=== PATIENT | female | born 1995 | race Caucasian/White ===

== ENCOUNTER 2021-05-19 02:17 | Outpatient (CLI) | payer MEDICAID, SELFPAY ==
[2021-05-19 15:01] LABS: Abs Immature Grans 0.04 10^3/uL (0.0-0.06); Absolute Basophil Count 0.03 10^3/uL (0.0-0.2); Absolute Eosinophil Count 0.26 10^3/uL (0.0-0.7); Absolute Lymphocyte Count 1.63 10^3/uL (1.2-3.4); Absolute Monocyte Count 1.06 10^3/uL (0.1-0.8); Absolute Neutrophil Count 6.67 10^3/uL (1.2-6.7); Basophils % 0.3; Eosinophils % 2.7; HCT 27.4 % (36.0-46.0); HGB 8.8 g/dL (11.2-15.7); Immature Grans % 0.4; Lymphocytes % 16.8; MCH 25.2 pg (27.0-33.0); MCHC 32.1 % (32.0-36.0); MCV 78.5 fL (80-95); MPV 8.5 fL (8.0-11.0); Monocytes % 10.9; Neutrophils % 68.9; Nucleated RBC 0 %; Platelet Count 547 10^3/uL (130-400); RBC 3.49 10^6/uL (3.93-5.22); RDW 12.6 % (11.7-14.6); RDW-SD 35.9 fL; WBC 9.69 10^3/uL (4.4-10.8)
[2021-05-19 15:13] LABS: Diff Comment Agrees w/ Instrument; Microcytosis 1+
[2021-05-19 15:46] LABS: TSH (W/Ref FT4) 1.98 uIU/mL (0.36-3.74)
[2021-05-20 09:48] LABS: Hepatitis B Surface Ag Negative (Negative)
[2021-05-20 10:15] LABS: Varicella IgG Antibody Positive (See Note)
[2021-05-20 10:17] LABS: Rubella IgG Ab (UVM) Positive (See Note)
[2021-05-20 10:18] LABS: Hepatitis C Ab w Rflx HCV PCR Negative (Negative)
[2021-05-20 10:26] LABS: HIV-1/2 Ag & Ab Screen Negative (Negative)
[2021-05-20 10:27] LABS: HSV Type 1 Ab, IgG Negative (Negative); HSV Type 2 Ab, IgG Positive (Negative)
[2021-05-21 14:17] LABS: Syphilis IgG w/Reflex Nonreactive (Nonreactive)
== END 2021-05-19 02:18 | disposition home or self-care (01) ==
PROVIDERS: Visit Provider Advanced Practice Midwife
DX: Z34.91 Encounter for supervision of normal pregnancy, unspecified, first trimester (principal)
CPT/HCPCS: 36415; 80307; 86787; 86803; 86850; 86900; 86901; 87340; 87389; 84443; 85025; 86695; 86696; 86762; 86780; 86870; 87086

== ENCOUNTER 2021-05-20 11:43 | Outpatient (REF) | payer MEDICAID, SELFPAY ==
[2021-05-20 13:21] LABS: *AMPHETAMINES SCREEN URINE Negative (Negative); *BARBITURATES SCREEN URINE Negative (Negative); *BENZODIAZEPINES SCREEN URINE Negative (Negative); Cannabinoids THC Negative (Negative); Cocaine Screen,Urine Negative (Negative); METHADONE URINE SCREEN Negative (Negative); OPIATES URINE SCREEN Negative (Negative)
[2021-05-20 13:23] LABS: Tricyclic Antidepressants Negative (Negative)
[2021-05-25 09:37] LABS: Buprenorphine Negative ng/mL (Cutoff: 5.0); Norbuprenorphine Negative ng/mL (Cutoff: 2.5)
== END 2021-05-20 11:44 | disposition home or self-care (01) ==
LOC: LBN 11:43
PROVIDERS: Visit Provider Advanced Practice Midwife
DX: Z34.91 Encounter for supervision of normal pregnancy, unspecified, first trimester (principal)
CPT/HCPCS: 80307; 87086

== ENCOUNTER 2021-06-09 13:11 | Outpatient (CLI) | payer MEDICAID, SELFPAY ==
[2021-06-09 13:17] VITALS: BP 117/68; PULSE 101; TEMP 36.8
[2021-06-09 13:26] VITALS: BP 117/68; PULSE 101; TEMP 36.8
--- NOTE | 2021-06-09 13:50 | PDOC.NST_ITS ---
Date of service: 06/09/21 Time of Service: 13:35 NST Evaluation Reason for NST Reasons for Nonstress Test: DECREASED MOVEMENT Gestational Age Gestational Age in Weeks and Days: 34 Weeks and 0Days Test and Monitor Explained Test/Monitor Explained: Test Explained, Monitor Explained and Patient Verbalized Understanding Vital Signs Blood Pressure: 117/68 Pulse: 101 Temperature: 98.2 F NST Information Date on Monitor: 06/09/21 Time on Monitor: 13:13 NST Interventions: PO Hydration Contraction Frequency: 0 NST Evaluation Patient States Movement: Present and Decreased FHR Baseline: 130 Variability: Moderate 6-25 bpm Accelerations: 15x15 Decelerations: None NST Results: Reactive Note NST Note Note: NST is reactive and reassuring. CAT I. Patient is aware of movement at this time and now reports she is feeling movement but not as large of movements. We discussed that as baby grows the movements may not be more than and arm or leg extension. We discussed that NST is best to evaluate changes in movement and she should call as she did today for any further concerns. Patient is r eassured and discharged to home ambulatory in satisfactory condition. VANNA NST Reviewed and Verified by: Micaela Briones
[2021-06-09 13:53] VITALS: BP 117/68; PULSE 101; TEMP 36.8
--- NOTE | 2021-06-15 13:25 | PDOC.ANES ---
Date of service: 06/15/21 Time of Service: 13:27 Anesthesia Note Report Anesthesia Note: Asked to see patient who has a history of remote drug use. She denies any IV drug use. She may be interested in a labor epidural but is concerned that it contains fentanyl. I discussed this with pharmacy who said we have the ability to make a solution without fentanyl. The plan would be to make this solution a week before her delivery date of 07/21/21 as this solution will be good for 14 days. Assessed airway, IV access and lumbar area with no difficulty noted. Explained procedure to patient who will think about it. Also discussed nitrous option which she is not interested in. Ashish seems appropriate to proceed with her planned delivery here.
== END 2021-06-09 13:50 | disposition home or self-care (01) ==
LOC: BCD 13:19 → OBS 13:23
PROVIDERS: Visit Provider Advanced Practice Midwife
DX: O36.8130 Decreased fetal movements, third trimester, not applicable or unspecified (principal); Z3A.34 34 weeks gestation of pregnancy
CPT/HCPCS: 59025

== ENCOUNTER 2021-07-01 13:22 | Outpatient (CLI) | payer MEDICAID, SELFPAY ==
[2021-07-01 13:38] VITALS: BP 120/69; PULSE 87; RESP 16
[2021-07-01] MEDS: IRON SUCROSE COMPLEX 200 MG in Normal Saline 100 ML 400 MG IVPB (14:08)
[2021-07-01] MEDS: Lactated Ringers 1,000 ML 1000 ML IV (14:10)
[2021-07-01 14:24] VITALS: BP 120/69; PULSE 87
--- NOTE | 2021-07-01 14:39 | NUR.NOTE ---
This RN assumed care of patient at 1330. Patient presents to the with welt wheeler JORGE L. Patient is ordered iron infusion for iron level of 7 per ANH COATS. Order of NST and hydration fluids given. IV in right hand by Emmanuel KRUGER. 1 attempt. Patient given PO fluids as well. Patient education - reviewed having iron with vit c for absorption. pt comfortable and aware of plan of care. plan is to have her return weekly for iron infusion w nst. BP wnl. larissa, rn Nursing Note:
--- NOTE | 2021-07-01 14:43 | W.OBNST ---
Date of service: 07/01/21 Time of Service: 14:43 NST Evaluation Reason for NST Reasons for Nonstress Test: OTHER, SEE COMMENT Reason for NST Other: Low Iron Gestational Age Gestational Age in Weeks and Days: 34 Weeks and 0Days Test and Monitor Explained Test/Monitor Explained: Test Explained, Monitor Explained and Patient Verbalized Understanding Vital Signs Blood Pressure: 120/69 Pulse: 87 NST Information Time on Monitor: 13:36 Date off Monitor: 07/01/21 Time off Monitor: 14:10 NST Interventions: PO Hydration, IV Fluids and Other NST Evaluation Patient States Movement: Present FHR Baseline: 130 Variability: Moderate 6-25 bpm Accelerations: 15x15 Decelerations: None NST Results: Reactive Note NST Note Note: Reactive NST done due to elevated BP in office today and urine dip that showed 1.030 Sp [place] and 100 of protein. Patient is also anemic with bedside hgb today in office of 7.5. She is taking oral supplement but not increasing her level. She agrees to IV iron infusion and IV hydration while at today for NST. She will also return to every week at 4:30 on Fridays for NST and iron infusion until over 11.0. Ashish denies OG, visual disturbance or epigastric pain. She is having bilateral lower leg edema 1+ to mid calf. We discussed importance of hgb and iron infusion as well as how to take her PO iron at home today. She verbalizes understanding. Will be discharged to home once IV hydration is completed and repeat urine dip is done. As her visit for hydration continued, patient requested repeat UDS as she is certain she has not been exposed to or used THC containing products. She is frustrated as she takes her sobriety very seriously. I ordered a repeat UDS for today. If that is negative we also will consider repeating UDS in a week. VANNA NST Reviewed and Verified by: Micaela Briones
[2021-07-01 14:47] VITALS: BP 120/69; PULSE 87
[2021-07-01 14:54] LABS: *AMPHETAMINES SCREEN URINE Negative (Negative); *BARBITURATES SCREEN URINE Negative (Negative); *BENZODIAZEPINES SCREEN URINE Negative (Negative); Cannabinoids THC Positive (Negative); Cocaine Screen,Urine Negative (Negative); METHADONE URINE SCREEN Negative (Negative); OPIATES URINE SCREEN Negative (Negative)
[2021-07-01 14:55] LABS: Tricyclic Antidepressants Negative (Negative)
[2021-07-01 16:38] LABS: *AMPHETAMINES SCREEN URINE Negative (Negative); *BARBITURATES SCREEN URINE Negative (Negative); *BENZODIAZEPINES SCREEN URINE Negative (Negative); Cannabinoids THC Negative (Negative); Cocaine Screen,Urine Negative (Negative); METHADONE URINE SCREEN Negative (Negative); OPIATES URINE SCREEN Negative (Negative); Tricyclic Antidepressants Negative (Negative)
[2021-07-06 11:29] LABS: Buprenorphine Negative ng/mL (Cutoff: 5.0)
== END 2021-07-01 16:52 | disposition home or self-care (01) ==
LOC: BCD 13:24 → NUR 13:39
PROVIDERS: Advanced Practice Midwife; Visit Provider Advanced Practice Midwife
DX: O99.013 Anemia complicating pregnancy, third trimester (principal); Z3A.34 34 weeks gestation of pregnancy; R80.9 Proteinuria, unspecified
CPT/HCPCS: 59025; 80307; 96360; 96361; 96365; 87081; J1756

== ENCOUNTER 2021-07-07 20:52 | Outpatient (REF) | payer MEDICAID, SELFPAY ==
[2021-07-07 16:06] LABS: *AMPHETAMINES SCREEN URINE Negative (Negative); *BARBITURATES SCREEN URINE Negative (Negative); *BENZODIAZEPINES SCREEN URINE Negative (Negative); Cannabinoids THC Negative (Negative); Cocaine Screen,Urine Negative (Negative); METHADONE URINE SCREEN Negative (Negative); OPIATES URINE SCREEN Negative (Negative)
[2021-07-07 16:53] LABS: Tricyclic Antidepressants Negative (Negative)
[2021-07-14 10:00] LABS: Buprenorphine Negative ng/mL (Cutoff: 5.0); Norbuprenorphine Negative ng/mL (Cutoff: 2.5)
== END 2021-07-07 20:53 | disposition home or self-care (01) ==
LOC: LBN 20:52
PROVIDERS: Visit Provider Advanced Practice Midwife
DX: Z34.93 Encounter for supervision of normal pregnancy, unspecified, third trimester (principal); Z3A.37 37 weeks gestation of pregnancy
CPT/HCPCS: 80307

== ENCOUNTER 2021-07-08 08:54 | Outpatient (CLI) | payer MEDICAID, SELFPAY ==
[2021-07-08 14:59] VITALS: BP 136/84; PULSE 86
[2021-07-08 15:00] VITALS: BP 136/84; PULSE 86; TEMP 208.8; TEMP 98.2
[2021-07-08] MEDS: Normal Saline 500 ML 200 ML IV (15:27)
[2021-07-08 15:31] VITALS: BP 136/84; PULSE 86; TEMP 208.8; TEMP 98.2
[2021-07-08] MEDS: IRON SUCROSE COMPLEX 200 MG in Normal Saline 100 ML 400 MG IVPB (15:36)
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
[2021-07-08 15:54] VITALS: BP 136/84; PULSE 86; TEMP 208.8; TEMP 98.2
[2021-07-08 16:18] LABS: HGB 8.2 g/dL (11.2-15.7); MCH 23.6 pg (27.0-33.0); MCHC 30.4 % (32.0-36.0); MCV 78 fL (80-95); MPV 9.2 fL (8.0-11.0); Platelet Count 325 10^3/uL (130-400); RBC 3.47 10^6/uL (3.93-5.22); RDW 17.2 % (11.7-14.6); RDW-SD 39.8 fL; WBC 9.34 10^3/uL (4.4-10.8)
[2021-07-08 16:32] LABS: ALT 17 U/L (14-59); AST 21 U/L (15-37); Albumin 2.4 g/dL (3.4-5.0); Alkaline Phosphatase 152 U/L (46-116); Anion Gap 8.9 mmol/L (3-11); BUN 8 mg/dL (7-18); Bilirubin, Total 0.2 mg/dL (0.2-1.0); CO2 24.1 mmol/L (21.0-32.0); CREATININE 0.7 mg/dL (0.55-1.02); Calcium 8.2 mg/dL (8.5-10.1); Chloride 105 mmol/L (98-107); Glucose 96 mg/dL (74-106); LDH 248 U/L (81-234); Potassium 3.6 mmol/L (3.5-5.1); Sodium 138 mmol/L (136-145); Uric Acid 5.9 mg/dL (2.6-6.0)
[2021-07-08 16:42] LABS: PROTEIN < 6.0 mg/dL
[2021-07-08 16:44] LABS: COMMENT (LAB VIEW ONLY) 8.86 mg/dL
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
== END 2021-07-08 17:15 | disposition home or self-care (01) ==
LOC: BCD 08:55 → OBS 14:46
PROVIDERS: Visit Provider Advanced Practice Midwife
DX: O16.3 Unspecified maternal hypertension, third trimester (principal); O99.013 Anemia complicating pregnancy, third trimester
CPT/HCPCS: 80053; 85027; 96360; 96361; 96365; 82565; 83615; 84156; 84550; G0378; J1756

== ENCOUNTER 2021-07-11 02:38 | Outpatient (CLI) | payer MEDICAID, SELFPAY | END 2021-07-11 02:39 | disposition home or self-care (01) | LOC: LBO 02:38 | PROVIDERS: Visit Provider Advanced Practice Midwife ==

== ENCOUNTER 2021-07-14 13:32 | Outpatient (CLI) | payer MEDICAID, SELFPAY ==
[2021-07-14] VITALS (13 sets, daily range): BP systolic 128–148; BP diastolic 82–99; PULSE 80–95; TEMP 36.7
[2021-07-14 14:14] LABS: HCT 27.2 % (36.0-46.0); HGB 8.5 g/dL (11.2-15.7); MCH 24.6 pg (27.0-33.0); MCHC 31.3 % (32.0-36.0); MCV 79 fL (80-95); MPV 9.4 fL (8.0-11.0); Platelet Count 361 10^3/uL (130-400); RBC 3.46 10^6/uL (3.93-5.22); RDW 21.8 % (11.7-14.6); RDW-SD 42.5 fL
[2021-07-14 14:29] LABS: ALT 16 U/L (14-59); AST 21 U/L (15-37); Albumin 2.2 g/dL (3.4-5.0); Alkaline Phosphatase 158 U/L (46-116); Anion Gap 11.1 mmol/L (3-11); BUN 6 mg/dL (7-18); Bilirubin, Total 0.2 mg/dL (0.2-1.0); CO2 19.9 mmol/L (21.0-32.0); CREATININE 0.7 mg/dL (0.55-1.02); Calcium 7.9 mg/dL (8.5-10.1); Chloride 105 mmol/L (98-107); Glucose 85 mg/dL (74-106); Potassium 3.9 mmol/L (3.5-5.1); Sodium 136 mmol/L (136-145); Total Protein 6.6 g/dL (6.4-8.2); Uric Acid 6.2 mg/dL (2.6-6.0)
[2021-07-14] MEDS: IRON SUCROSE COMPLEX 200 MG in Normal Saline 100 ML 400 MG IVPB (15:10)
[2021-07-14] MEDS: Normal Saline Flush 10 ML SYR (15:12)
[2021-07-14 15:24] LABS: COMMENT (LAB VIEW ONLY) 100.88 mg/dL; PROTEIN 124.4 mg/dL; Prot/Crea Ur Ratio 1.23
--- NOTE | 2021-07-14 16:38 | W.OBNST ---
Date of service: 07/14/21 Time of Service: 16:38 NST Evaluation Reason for NST Reasons for Nonstress Test: OTHER, SEE COMMENT Reason for NST Other: Evaluation for PreEclampsia, elevated BP in office Gestational Age Gestational Age in Weeks and Days: 38 Weeks and 2Days Test and Monitor Explained Test/Monitor Explained: Test Explained, Monitor Explained and Patient Verbalized Understanding Vital Signs Blood Pressure: 138/95 Pulse: 93 Temperature: 98.1 F NST Information Time on Monitor: 13:25 Date off Monitor: 07/14/21 Time off Monitor: 14:06 NST Interventions: PO Hydration, IV Fluids, Meal Given and Notify Provider Contraction Frequency: None NST Evaluation Patient States Movement: Present FHR Baseline: 135 Variability: Moderate 6-25 bpm Accelerations: 15x15 Decelerations: None NST Results: Reactive Note NST Note Note: Iron infusion #3 completed Cvx ft/50% posterior, vtx -4, intact membranes HTN labs done and are nml except for urine prot/creat @ 1.23 Pt to begin 24 hr urine collection in the morning, Return to 07/16 for BP, NST and await urine protein result. Possible IOL on 07/16 if >300 gms, otherwise IOL planned for 07/19 (@ 39 wks) NST Reviewed and Verified by: Christy Gagnon
== END 2021-07-14 16:20 | disposition home or self-care (01) ==
LOC: BCD 13:32 → OBS 13:33
PROVIDERS: Advanced Practice Midwife; Visit Provider Advanced Practice Midwife
DX: O16.3 Unspecified maternal hypertension, third trimester (principal); O99.013 Anemia complicating pregnancy, third trimester; Z3A.38 38 weeks gestation of pregnancy
CPT/HCPCS: 59025; 80053; 85027; 96365; 82565; 84156; 84550; G0378; J1756

== ENCOUNTER 2021-07-14 18:30 | Outpatient (CLI) | payer MEDICAID, SELFPAY | END 2021-07-14 18:31 | disposition home or self-care (01) | LOC: BCD 18:30 | PROVIDERS: Visit Provider Advanced Practice Midwife | DX: O16.3 Unspecified maternal hypertension, third trimester (principal); Z3A.38 38 weeks gestation of pregnancy | CPT/HCPCS: 59025 ==

== ENCOUNTER 2021-07-15 02:49 | Inpatient (IN) | payer MEDICAID, SELFPAY ==
[2021-07-15] VITALS (8 sets, daily range): BP systolic 132–151; BP diastolic 91–99; PULSE 18–83; RESP 16–18; TEMP 36.4–36.9
--- NOTE | 2021-07-15 | DI.US_ITS ---
Exam(s) US OB AMY WEIGHT EXAM: US OB AMY WEIGHT CLINICAL HISTORY: pre-eclampsia. TECHNIQUE: Transabdominal obstetrical ultrasound was performed. COMPARISON: No exams were available for comparison FINDINGS: This is the 1st study of this gestation in our department. There is a single viable intrauterine gestation with cardiac activity identified-132 bpm The fetus is presently in cephalic position . Amniotic fluid: There is a normal amount of amniotic fluid with an AMY of 11.9cm. Placental location: The placenta is anterior grade 2,with no evidence of placenta previa. Dating parameters place this at approximately 37 weeks and 6 days gestational age, implying GIULIANA of July 30, 2021. BPD measures 38 weeks and 0 days HC measures 38 weeks and 0 days AC measures 37 weeks and 5 days FL measures 37 weeks and 4 days Estimated weight is 3304 gm-7 pounds 5 ounces Fetus is at the 48th percentile on the Hadlock scale. IMPRESSION:: Viable 3rd trimester gestation, as described above. Normal amount of amniotic fluid. Anterior placenta with no evidence of placenta previa. DATA REPOSITORY:
--- NOTE | 2021-07-15 03:27 | NUR.NOTE ---
Nursing Note:had 1 dose of moderna vaccine
[2021-07-15 04:00] LABS: COMMENT (LAB VIEW ONLY) 90.84 mg/dL; PROTEIN 99.9 mg/dL; Prot/Crea Ur Ratio 1.09
[2021-07-15 04:04] LABS: HCT 28.6 % (36.0-46.0); HGB 8.9 g/dL (11.2-15.7); MCH 24.1 pg (27.0-33.0); MCHC 31.1 % (32.0-36.0); MCV 78 fL (80-95); MPV 9.6 fL (8.0-11.0); Platelet Count 417 10^3/uL (130-400); RBC 3.69 10^6/uL (3.93-5.22); RDW-SD 43.1 fL; WBC 6.95 10^3/uL (4.4-10.8)
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
[2021-07-15 04:31] LABS: Bilirubin Negative (Negative); Blood Negative (Negative); Clarity Cloudy (Clear); Glucose Negative (Negative); Ketones Negative (Negative); Leukocyte Esterase Small (Negative); Nitrite Negative (Negative); Specific Gravity 1.025 (1.005-1.025); Urobilinogen 0.2 EU/dL (Up TO 0.2)
[2021-07-15 04:53] LABS: ALT 26 U/L (14-59); AST 20 U/L (15-37); Albumin 2.1 g/dL (3.4-5.0); Alkaline Phosphatase 161 U/L (46-116); BUN 5 mg/dL (7-18); CREATININE 0.6 mg/dL (0.55-1.02); Calcium 7.9 mg/dL (8.5-10.1); Chloride 107 mmol/L (98-107); Glucose 92 mg/dL (74-106); LDH 253 U/L (81-234); Potassium 3.6 mmol/L (3.5-5.1); Sodium 138 mmol/L (136-145); Total Protein 6.6 g/dL (6.4-8.2); Uric Acid 5.5 mg/dL (2.6-6.0)
[2021-07-15 04:57] LABS: Bacteria Many HPF (Negative); C & S Indicated? No/Sq. Contamination; Crystals Negative HPF (Negative); Epithelial Cells Many HPF (Negative); Mucus Moderate (Negative); RBC Negative HPF (0-2)
[2021-07-15 05:14] LABS: Bilirubin, Total < 0.1 mg/dL (0.2-1.0)
--- NOTE | 2021-07-15 07:08 | W.OBNST ---
Date of service: 07/15/21 Time of Service: 04:00 NST Evaluation Reason for NST Reasons for Nonstress Test: GESTATIONAL HYPERTENSION Gestational Age Gestational Age in Weeks and Days: 38 Weeks and 2Days Test and Monitor Explained Test/Monitor Explained: Test Explained, Monitor Explained and Patient Verbalized Understanding Vital Signs Blood Pressure: 144/96 Pulse: 18 Temperature: 97.5 F NST Information Date on Monitor: 07/15/21 Time on Monitor: 03:20 Date off Monitor: 07/15/21 Time off Monitor: 04:00 Total Time on Monitor: 40 NST Interventions: PO Hydration Contraction Frequency: rare NST Evaluation Patient States Movement: Present FHR Baseline: 125 Variability: Moderate 6-25 bpm Accelerations: 15x15 Decelerations: None NST Results: Reactive Note NST Note Note: repeat labs pending NST Reviewed and Verified by: Christy Gagnon
[2021-07-15 07:58] LABS: Source Nasal/Nares
[2021-07-15 08:39] LABS: COVID-19 PCR Negative (Negative)
--- NOTE | 2021-07-15 09:44 | NUR.NOTE ---
cnm at bedside with RN to explain paln of care to pt. pt will stay for 24 hour urine collection under observation. Nursing Note:
--- NOTE | 2021-07-15 10:21 | NUR.NOTE ---
24 hour urine collection started. pt 1st void at 1020am on 07/15/21Nursing Note:
[2021-07-15] MEDS: Acetaminophen 500 MG TAB 1000 MG PO (10:51)
[2021-07-15] MEDS: hydrOXYzine PAMOATE 25 MG CAP 75 MG PO (11:47)
[2021-07-15] MEDS: valACYclovir 500 MG TAB PO ×2 (11:49→22:30)
--- NOTE | 2021-07-15 17:47 | PGE_ITS ---
Date of service: 07/15/21 Time of Service: 17:47 Assessment and Plan Assessment and plan (1) Elevated blood pressure affecting in third trimester, antepartum: Assessment and plan: A: BP's are stable, mild range, pt resting well Gestational HTN, r/o pre-eclampsia in the setting of unfavorable nulliparous cervix P: Continue current tx Await 24 hr collection results Objective Abnormal lab results 07/15/21 07/15/21 07/15/21 Range/Units 03:12 03:24 03:24 RBC 3.69 L (3.93-5.22) 10^6/uL Hgb 8.9 L (11.2-15.7) g/dL Hct 28.6 L (36.0-46.0) % MCV 78 L (80-95) fL MCH 24.1 L (27.0-33.0) pg MCHC 31.1 L (32.0-36.0) % RDW 22.0 H (11.7-14.6) % Plt Count 417 H (130-400) 10^3/uL Carbon Dioxide 20.0 L (21.0-32.0) mmol/L BUN 5 L (7-18) mg/dL Calcium 7.9 L (8.5-10.1) mg/dL Total Bilirubin < 0.1 L (0.2-1.0) mg/dL Alkaline Phosphatase 161 H (46-116) U/L Lactate Dehydrogenase 253 H (81-234) U/L Albumin 2.1 L (3.4-5.0) g/dL Urine Protein 100 H (Negative) mg/dL Ur Leukocyte Esterase Small H (Negative) Temp Pulse Resp BP 97.7 F 74 16 141/99 H 07/15/21 16:49 07/15/21 16:49 07/15/21 11:45 07/15/21 16:49 Laboratory Results WBC 6.95 10^3/uL (4.4-10.8) 07/15/21 03:24 RBC 3.69 10^6/uL (3.93-5.22) L 07/15/21 03:24 Hgb 8.9 g/dL (11.2-15.7) L 07/15/21 03:24 Hct 28.6 % (36.0-46.0) L 07/15/21 03:24 MCV 78 fL (80-95) L 07/15/21 03:24 MCH 24.1 pg (27.0-33.0) L 07/15/21 03:24 MCHC 31.1 % (32.0-36.0) L 07/15/21 03:24 RDW 22.0 % (11.7-14.6) H 07/15/21 03:24 Plt Count 417 10^3/uL (130-400) H 07/15/21 03:24 MPV 9.6 fL (8.0-11.0) 07/15/21 03:24 Sodium 138 mmol/L (136-145) 07/15/21 03:24 Potassium 3.6 mmol/L (3.5-5.1) 07/15/21 03:24 Chloride 107 mmol/L (98-107) 07/15/21 03:24 Carbon Dioxide 20.0 mmol/L (21.0-32.0) L 07/15/21 03:24 Anion Gap 11.0 mmol/L (3-11) 07/15/21 03:24 BUN 5 mg/dL (7-18) L 07/15/21 03:24 Creatinine 0.6 mg/dL (0.55-1.02) 07/15/21 03:24 Estimated GFR/1.73 m2 >= 60.00 (mL/min/1.73m2) 07/15/21 03:24 Glucose 92 mg/dL (74-106) 07/15/21 03:24 Uric Acid 5.5 mg/dL (2.6-6.0) 07/15/21 03:24 Calcium 7.9 mg/dL (8.5-10.1) L 07/15/21 03:24 Total Bilirubin < 0.1 mg/dL (0.2-1.0) L 07/15/21 03:24 AST 20 U/L (15-37) 07/15/21 03:24 ALT 26 U/L (14-59) 07/15/21 03:24 Alkaline Phosphatase 161 U/L (46-116) H 07/15/21 03:24 Lactate Dehydrogenase 253 U/L (81-234) H 07/15/21 03:24 Total Protein 6.6 g/dL (6.4-8.2) 07/15/21 03:24 Albumin 2.1 g/dL (3.4-5.0) L 07/15/21 03:24 Urine Color Yellow (Yellow) 07/15/21 03:12 Urine Clarity Cloudy (Clear) 07/15/21 03:12 Urine pH 7.0 (5-8) 07/15/21 03:12 Ur Specific [place] 1.025 (1.005-1.025) 07/15/21 03:12 Urine Protein 100 mg/dL (Negative) H 07/15/21 03:12 Urine Ketones Negative mg/dL (Negative) 07/15/21 03:12 Urine Blood Negative (Negative) 07/15/21 03:12 Urine Nitrite Negative (Negative) 07/15/21 03:12 Urine Bilirubin Negative (Negative) 07/15/21 03:12 Urine Urobilinogen 0.2 EU/dL (Up TO 0.2) 07/15/21 03:12 Ur Leukocyte Esterase Small (Negative) H 07/15/21 03:12 Urine RBC Negative HPF (0-2) 07/15/21 03:12 Urine WBC 3-5 HPF (0-5) 07/15/21 03:12 Ur Epithelial Cells Many HPF (Negative) 07/15/21 03:12 Urine Crystals Negative HPF (Negative) 07/15/21 03:12 Urine Bacteria Many HPF (Negative) 07/15/21 03:12 Urine Mucus Moderate (Negative) 07/15/21 03:12 Ur Culture Indicated? No/Sq. Contamination 07/15/21 03:12 Ur Random Creatinine 90.84 mg/dL 07/15/21 03:12 U Random Total Protein 99.9 mg/dL 07/15/21 03:12 U [place] Prot/Creat Ratio 1.09 07/15/21 03:12 Urine Glucose Negative mg/dL (Negative) 07/15/21 03:12 COVID-19 Source Nasal/Nares 07/15/21 07:45 SARS-CoV-2 (PCR) Negative (Negative) 07/15/21 07:45 Patient ABO/Rh B Negative 07/15/21 03:24 Antibody Screen NEGATIVE 07/15/21 03:24 Objective Narrative Objective Narrative: BP's remain 140's over 90's Afebrile, 24 hr urine collection in progress Given Vistaril to encourage rest Tolerating regular diet well Vital signs and FHT q 4 hrs, reassuring and stable Subjective Patient Reports: No new Complaints Interval history since last seen: Pt has been sleeping intermittently throughout the day, eating well, no emesis. No increase in pain is reported, tylenol given for OG earlier. Results Hemoglobin/Hematocrit: Hgb 8.9 g/dL (11.2-15.7) L 07/15/21 03:24 Hct 28.6 % (36.0-46.0) L 07/15/21 03:24 Abnormal Lab Findings: Abnormal Labs 07/15/21 07/15/21 07/15/21 03:12 03:24 03:24 RBC 3.69 L Hgb 8.9 L Hct 28.6 L MCV 78 L MCH 24.1 L MCHC 31.1 L RDW 22.0 H Plt Count 417 H Carbon Dioxide 20.0 L BUN 5 L Calcium 7.9 L Total Bilirubin < 0.1 L Alkaline Phosphatase 161 H Lactate Dehydrogenase 253 H Albumin 2.1 L Urine Protein 100 H Ur Leukocyte Esterase Small H
--- NOTE | 2021-07-15 21:46 | W.PM.OBNL1 ---
Date of service: 07/15/21 Time of Service: 21:46 Informed Consent Informed Consent: Induction of Labor (Risks and benefits, indication, possible success or failure of induction process, increased risk of C/S delivery reviewed with pt, questions addressed.) Pelvic Exam BISHOPS Score(Cervical Ripeness Score): 3 (based on cvx exam yesterday) Fetus A Monitor: External (US) Heart Rate Baseline: 135 Presentation: Cephalic Variability: Moderate (6-25 BPM) Categories: Category I Accelerations: 15 X 15 Decelerations: None Amniotic Membrane Status: Intact Assessment and Plan Assessment and plan (1) Elevated blood pressure affecting in third trimester, antepartum: Assessment and plan: A: Gestational HTN, stable Primipara, Lucio score 3 24 hr urine collection in progress Category 1 tracing P: Pt consents to IOL via cervical ripening Repeat Pre-E labs in the morning Encourage rest through the night Dr. Graf available for consultation as needed Objective Vital Signs Reviewed: Yes Objective Narrative Objective Narrative: Pt has slept most of the afternoon and evening BP remains mild range 140-150 over 90's Pt reports resolution of OG and abd discomfort Plan of care to begin IOL via cervical ripening discussed with pt Urine collection in progress, output for 12 hours at 500 ml Orders placed for repeat CMP/CBC in the morning Subjective Patient Reports: No new Complaints Interval history since last seen: Pt reports no OG at this time, no abd pain, no contractions that she can feel, no nausea or vomiting, no vaginal bleeding or ROM.
[2021-07-16] VITALS (95 sets, daily range): BP systolic 126–179; BP diastolic 66–107; PULSE 0–137; RESP 16–20; TEMP 36.4–36.8; O2SAT 97–100; BMI 35.5
[2021-07-16] MEDS: miSOPROStol 50 MCG TAB PO ×3 (06:02→14:06)
[2021-07-16 06:41] LABS: HCT 27.7 % (36.0-46.0); HGB 8.7 g/dL (11.2-15.7); MCH 24.7 pg (27.0-33.0); MCHC 31.4 % (32.0-36.0); MCV 79 fL (80-95); MPV 9.4 fL (8.0-11.0); Platelet Count 408 10^3/uL (130-400); RBC 3.52 10^6/uL (3.93-5.22); RDW 22.7 % (11.7-14.6); WBC 6.92 10^3/uL (4.4-10.8)
[2021-07-16 07:04] LABS: ALT 17 U/L (14-59); AST 19 U/L (15-37); Alkaline Phosphatase 158 U/L (46-116); Anion Gap 10.8 mmol/L (3-11); BUN 5 mg/dL (7-18); Bilirubin, Total 0.1 mg/dL (0.2-1.0); CO2 20.2 mmol/L (21.0-32.0); CREATININE 0.6 mg/dL (0.55-1.02); Calcium 7.7 mg/dL (8.5-10.1); Chloride 107 mmol/L (98-107); Glucose 87 mg/dL (74-106); LDH 227 U/L (81-234); Potassium 3.4 mmol/L (3.5-5.1); Sodium 138 mmol/L (136-145); Total Protein 6.3 g/dL (6.4-8.2)
[2021-07-16] MEDS: valACYclovir 500 MG TAB PO (09:06)
[2021-07-16] MEDS: FLUoxetine 10 MG TAB PO (09:06)
[2021-07-16 11:04] LABS: Creatinine,Urine 64.79 mg/dL
[2021-07-16 11:05] LABS: PROTEIN 51.3 mg/dL (0.0-11.9); Total Volume 2000 ml
[2021-07-16 11:06] LABS: Total Volume 2000 ml
--- NOTE | 2021-07-16 14:12 | W.PM.OBNL1 ---
Date of service: 07/16/21 Time of Service: 14:12 Informed Consent Informed Consent: Induction of Labor (Risks and benefits, indication, possible success or failure of induction process, increased risk of C/S delivery reviewed with pt, questions addressed.) Contractions Contraction Frequency(min): irregular, mild Fetus A Monitor: External (US) Heart Rate Baseline: 140 Presentation: Cephalic Variability: Moderate (6-25 BPM) Categories: Category I Accelerations: 15 X 15 Decelerations: None Amniotic Membrane Status: Intact Assessment and Plan Assessment and plan (1) Pre-eclampsia affecting childbirth: Status: Acute Assessment and plan: A: Gestational HTN advanced to pre-eclampsia without severe features Induction of labor in setting of nulliparous unfavorable cervix Category 1 tracing; GBS neg, membranes are intact Continuing PO Valtrex 500 mg BID, no genital lesions on inspection, pt denies sx P: Cervical ripening in progress LFT's, Creat, CBC daily All lab results and plan of care are reviewed with Dr. Graf Pt requesting & signed TL consent form today, aware of waiting period required after signing IV access established and maintained [employer] aware of pt's plan of care, fentanyl-free regional anesthesia prepared & held in pharmacy (2) Encounter for induction of labor: Status: Acute Assessment and plan: A: Objective Abnormal lab results 07/16/21 07/16/21 07/16/21 Range/Units 06:27 06:27 10:20 RBC 3.52 L (3.93-5.22) 10^6/uL Hgb 8.7 L (11.2-15.7) g/dL Hct 27.7 L (36.0-46.0) % MCV 79 L (80-95) fL MCH 24.7 L (27.0-33.0) pg MCHC 31.4 L (32.0-36.0) % RDW 22.7 H (11.7-14.6) % Plt Count 408 H (130-400) 10^3/uL Potassium 3.4 L (3.5-5.1) mmol/L Carbon Dioxide 20.2 L (21.0-32.0) mmol/L BUN 5 L (7-18) mg/dL Calcium 7.7 L (8.5-10.1) mg/dL Total Bilirubin 0.1 L (0.2-1.0) mg/dL Alkaline Phosphatase 158 H (46-116) U/L Total Protein 6.3 L (6.4-8.2) g/dL Albumin 2.0 L (3.4-5.0) g/dL U Random Total Protein 51.3 H (0.0-11.9) mg/dL Ur Total Protein 24 Hr 1026.0 H (0.0-149.1) mg/24hr Temp Pulse Resp BP Pulse Ox 98.2 F 97 H 16 150/101 H 97 07/16/21 12:01 07/16/21 14:04 07/16/21 12:01 07/16/21 12:01 07/16/21 08:01 Laboratory Results WBC 6.92 10^3/uL (4.4-10.8) 07/16/21 06:27 RBC 3.52 10^6/uL (3.93-5.22) L 07/16/21 06:27 Hgb 8.7 g/dL (11.2-15.7) L 07/16/21 06:27 Hct 27.7 % (36.0-46.0) L 07/16/21 06:27 MCV 79 fL (80-95) L 07/16/21 06:27 MCH 24.7 pg (27.0-33.0) L 07/16/21 06:27 MCHC 31.4 % (32.0-36.0) L 07/16/21 06:27 RDW 22.7 % (11.7-14.6) H 07/16/21 06:27 Plt Count 408 10^3/uL (130-400) H 07/16/21 06:27 MPV 9.4 fL (8.0-11.0) 07/16/21 06:27 Sodium 138 mmol/L (136-145) 07/16/21 06:27 Potassium 3.4 mmol/L (3.5-5.1) L 07/16/21 06:27 Chloride 107 mmol/L (98-107) 07/16/21 06:27 Carbon Dioxide 20.2 mmol/L (21.0-32.0) L 07/16/21 06:27 Anion Gap 10.8 mmol/L (3-11) 07/16/21 06:27 BUN 5 mg/dL (7-18) L 07/16/21 06:27 Creatinine 0.6 mg/dL (0.55-1.02) 07/16/21 06:27 Estimated GFR/1.73 m2 >= 60.00 (mL/min/1.73m2) 07/16/21 06:27 Glucose 87 mg/dL (74-106) 07/16/21 06:27 Uric Acid 5.5 mg/dL (2.6-6.0) 07/15/21 03:24 Calcium 7.7 mg/dL (8.5-10.1) L 07/16/21 06:27 Total Bilirubin 0.1 mg/dL (0.2-1.0) L 07/16/21 06:27 AST 19 U/L (15-37) 07/16/21 06:27 ALT 17 U/L (14-59) 07/16/21 06:27 Alkaline Phosphatase 158 U/L (46-116) H 07/16/21 06:27 Lactate Dehydrogenase 227 U/L (81-234) 07/16/21 06:27 Total Protein 6.3 g/dL (6.4-8.2) L 07/16/21 06:27 Albumin 2.0 g/dL (3.4-5.0) L 07/16/21 06:27 Urine Color Yellow (Yellow) 07/15/21 03:12 Urine Clarity Cloudy (Clear) 07/15/21 03:12 Urine pH 7.0 (5-8) 07/15/21 03:12 Ur Specific [place] 1.025 (1.005-1.025) 07/15/21 03:12 Urine Protein 100 mg/dL (Negative) H 07/15/21 03:12 Urine Ketones Negative mg/dL (Negative) 07/15/21 03:12 Urine Blood Negative (Negative) 07/15/21 03:12 Urine Nitrite Negative (Negative) 07/15/21 03:12 Urine Bilirubin Negative (Negative) 07/15/21 03:12 Urine Urobilinogen 0.2 EU/dL (Up TO 0.2) 07/15/21 03:12 Ur Leukocyte Esterase Small (Negative) H 07/15/21 03:12 Urine RBC Negative HPF (0-2) 07/15/21 03:12 Urine WBC 3-5 HPF (0-5) 07/15/21 03:12 Ur Epithelial Cells Many HPF (Negative) 07/15/21 03:12 Urine Crystals Negative HPF (Negative) 07/15/21 03:12 Urine Bacteria Many HPF (Negative) 07/15/21 03:12 Urine Mucus Moderate (Negative) 07/15/21 03:12 Ur Culture Indicated? No/Sq. Contamination 07/15/21 03:12 Ur Random Creatinine 64.79 mg/dL 07/16/21 10:20 U Random Total Protein 51.3 mg/dL (0.0-11.9) H 07/16/21 10:20 U [place] Prot/Creat Ratio 1.09 07/15/21 03:12 Urine Total Volume 2000 ml 07/16/21 10:20 Ur Creatinine 24 Hour 1.30 g/24hr (0.60-1.80) 07/16/21 10:20 Urine Total Volume 2000 ml 07/16/21 10:20 Ur Total Protein 24 Hr 1026.0 mg/24hr (0.0-149.1) H 07/16/21 10:20 Urine Glucose Negative mg/dL (Negative) 07/15/21 03:12 COVID-19 Source Nasal/Nares 07/15/21 07:45 SARS-CoV-2 (PCR) Negative (Negative) 07/15/21 07:45 Patient ABO/Rh B Negative 07/15/21 03:24 Antibody Screen NEGATIVE 07/15/21 03:24 Vital Signs Reviewed: Yes Objective Narrative Objective Narrative: Mild range BP's 14-150 over 90-100 consistently Pt denies OG or RUQ pain, or scotomata Socializing with her mother and father who are present for support Tolerating PO intake well Total protein in 24 hr collection elevated @ 1026; all other lab values remain nml IOL via cervical ripening in progress, misoprostel 50 mcg PO x3 thus far Category 1 tracing, irregular mild contractions Multiple lengthy & detailed discussions with pt and family to educate about induction process Pt requests tubal ligation if C/S is needed, requesting to sign TL consent form today Subjective Patient Reports: No new Complaints Interval history since last seen: Pt moving around room, ambulating in unit, using physio ball to sit and do hip circles. Occasionally feels mild contractions in lower and upper abd, low back feels sore at times. Results Abnormal Lab Findings: Abnormal Labs 07/15/21 07/15/21 07/15/21 03:12 03:24 03:24 RBC 3.69 L Hgb 8.9 L Hct 28.6 L MCV 78 L MCH 24.1 L MCHC 31.1 L RDW 22.0 H Plt Count 417 H Potassium Carbon Dioxide 20.0 L BUN 5 L Calcium 7.9 L Total Bilirubin < 0.1 L Alkaline Phosphatase 161 H Lactate Dehydrogenase 253 H Total Protein Albumin 2.1 L Urine Protein 100 H Ur Leukocyte Esterase Small H U Random Total Protein Ur Total Protein 24 Hr 07/16/21 07/16/21 07/16/21 06:27 06:27 10:20 RBC 3.52 L Hgb 8.7 L Hct 27.7 L MCV 79 L MCH 24.7 L MCHC 31.4 L RDW 22.7 H Plt Count 408 H Potassium 3.4 L Carbon Dioxide 20.2 L BUN 5 L Calcium 7.7 L Total Bilirubin 0.1 L Alkaline Phosphatase 158 H Lactate Dehydrogenase Total Protein 6.3 L Albumin 2.0 L Urine Protein Ur Leukocyte Esterase U Random Total Protein 51.3 H Ur Total Protein 24 Hr 1026.0 H Procedure Procedures: Cervical Ripening Cervical Ripening: Misoprostol
[2021-07-16] MEDS: Normal Saline Flush 10 ML SYR IVP (15:30)
--- NOTE | 2021-07-16 17:48 | W.PM.OBNL1 ---
Date of service: 07/16/21 Time of Service: 17:48 Informed Consent Informed Consent: Regional Anesthesia and Risk,Benefits,Alternatives Discussed Pelvic Exam Dilation: 3 Effacement (%): 90 station: -3 Cervix Position: mid Consistency: medium BISHOPS Score(Cervical Ripeness Score): 7 Comments: OP head position, large BBOW palpable Contractions Monitor Mode: External Contraction Frequency(min): irregular, q2-5 minutes Contraction Duration(sec): 40-70 Intensity: Moderate Fetus A Monitor: External (US) Heart Rate Baseline: 140 Presentation: Cephalic Variability: Moderate (6-25 BPM) Categories: Category I Accelerations: 15 X 15 Decelerations: None Amniotic Membrane Status: Intact Assessment and Plan Assessment and plan (1) Encounter for induction of labor: Status: Acute Assessment and plan: A: Pt very uncomfortable and seems frightened Early labor, cervical ripening complete Need for pain control Category 1 tracing, stable 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 Graf notified of progress (2) Pre-eclampsia affecting childbirth: Status: Acute Assessment and plan: BP's remain mild range Pt denies OG, RUQ pain for visual changes Objective Vital Signs Reviewed: Yes Objective Narrative Objective Narrative: Using nitrous to good effect Pt breathing hard with contractions, She states she finds shaking her body intentionally helps manage her anxiety Friend is at bedside for support Pt requesting C/S I can't do this for 12 hours, open to trying epidural Subjective Patient Reports: New Complaints Interval history since last seen: Contractions are painful, pt reports increased anxiety, having loose stools, wants to know if she can elect for a C/S now, agrees to try regional anesthesia.
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
[2021-07-16] MEDS: Lactated Ringers 500 ML IV (18:10)
--- NOTE | 2021-07-16 18:40 | W.ANESNEU ---
Epidural/Spinal Catheter Date Performed: 07/16/21 Procedure Start: 06:26 Procedure Stop: 06:33 Requesting Provider: Christy Gagnon Procedure Location: Obstetrics Reason Performed: Labor Epidural Standard Monitors Applied: Blood Pressure, SpO2 and See EMR for corresponding vital signs Patient Position: Sitting Sedation Given (Indicate Dose Given): No Sedation given Patient Mental Status: Awake Sterility: Hand Hygiene, Surgical Cap, Surgical Mask, Sterile Gloves, Sterile Drape/Sheet, Eye Protection and Chlorhexidine Procedure Location: L3-L4 Interspace Epidural Needle: Tuohy 17 Guage Needle Length: 3.5 Inch Needle Approach: Midline Epidural Procedure: Skin Prepped, Sterile Drape Placed, 1% Lidocaine to skin and subcutaneous tissue with 25G needle, Tuohy Needle placed, KENNETH to Saline Used, Epidural Catheter Placed, Negative Heme and Negative CSF Flow Catheter Placed?: Catheter Placed Test Dose (Indicate Dose Given): 5ml 1.5% Lidocaine with 1:200K Epinephrine Given and Negative Test Dose Loss of Resistance Depth (cm): 9 Catheter depth at skin (cm): 15 Dressing: [place] Dressing Placed, Mastisol Used and Dressing reinforced with Tape Epidural Provider Bolus (Indicate Dose Given): None Given Additives (Indicate Dose Given ): None Infusion Medication: Medication Infusion Began Medication Infusion: Other (Ropivacaine 0.1% without Fentanyl) Maintenance Infusion Rate (ml/hour): 10 PCEA Bolus Dose (ml): 5 Block Level: T10 Paresthesia: None Ultrasound: Not Used Number of Attempts (See previous attempts in note section): 1 Procedure Tolerated: No Complications and Patient tolerated well Procedure Outcome: Successful Performed By: James Up
--- NOTE | 2021-07-16 19:53 | W.PM.OBNL1 ---
Date of service: 07/16/21 Time of Service: 19:53 Informed Consent Informed Consent: Risk,Benefits,Alternatives Discussed and Other (AROM) Pelvic Exam Dilation: 5 Effacement (%): 90 station: -2 Position: ROP Cervix Position: mid Consistency: soft Fetus A Heart Rate Baseline: 140 Variability: Moderate (6-25 BPM) Categories: Category I Accelerations: 15 X 15 Decelerations: Early Amniotic Membrane Status: Ruptured Rupture Method: Artifical Amniotic Fluid: Clear Date of Membrane Rupture: 07/16/21 Time of Membrane Rupture: 19:45 Assessment and Plan Assessment and plan (1) Encounter for induction of labor: Status: Acute Assessment and plan: A: Active labor, cat 1 tracing Epidural anesthesia (fentanyl-free) AROM for clear fluid Pre-eclampsia without severe features, stable P: encourage pt to rest observe for signs of transition/2nd stage Anticipate Objective Objective Narrative Objective Narrative: Higher BP readings noted after epidural initiated BP cuff in use noted to be too small for measured 36 cm arm circumference Changed to appropriate sized cuff, BP's remain mild range Pt drowsy, still able to appreciate contractions and pressure during vaginal exam Afebrile, category 1 tracing Friend at bedside for support, received Reiki treatment from another visitor Continuous EFM via NOVI monitor system IV patent and infusing well Subjective Interval history since last seen: Epidural has provided excellent relief, pt drowsy and ready to nap. Interventions Pain Management Interventions: Epidural Epidural Placed by:: James Up and Nitrous Oxide , pt used nitrous for a few hours after 3rd misoprostel dose until epidural in place .
[2021-07-17] VITALS (18 sets, daily range): BP systolic 117–155; BP diastolic 72–93; PULSE 0–121; RESP 16–96; TEMP 36.3–36.8; O2SAT 96
[2021-07-17] MEDS: Oxytocin/Normal Saline 30 UNIT/500 ML BAG 95 UNITS IV (00:20)
[2021-07-17] MEDS: Acetaminophen 325 MG TAB 650 MG PO ×2 (01:01→14:26)
--- NOTE | 2021-07-17 01:53 | PGE_ITS ---
Date of Service Date of service: 07/17/21 Time of Service: 13:30 Assessment and Plan Assessment and plan (1) Anal sphincter tear w/o 3rd deg perineal laceration, delivered: Status: Acute Subjective Subjective Interval history since last seen: Pt had a vaginal delivery around midnight. She had an extensive vaginal laceration repaired by the jewel bearing broacher. She also had a partial third degree tear which I was called in to assist with. Objective Last Vital Signs Temp 97.5 F L 07/16/21 15:53 Pulse 99 H 07/17/21 01:22 Resp 20 07/16/21 15:53 BP 126/78 07/17/21 01:22 Pulse Ox 99 07/16/21 18:53 Laboratory Results - last 24 hr 07/16/21 07/16/21 07/16/21 06:27 06:27 10:20 WBC 6.92 RBC 3.52 L Hgb 8.7 L Hct 27.7 L MCV 79 L MCH 24.7 L MCHC 31.4 L RDW 22.7 H Plt Count 408 H MPV 9.4 Sodium 138 Potassium 3.4 L Chloride 107 Carbon Dioxide 20.2 L Anion Gap 10.8 BUN 5 L Creatinine 0.6 Estimated GFR/1.73 m2 >= 60.00 Glucose 87 Calcium 7.7 L Total Bilirubin 0.1 L AST 19 ALT 17 Alkaline Phosphatase 158 H Lactate Dehydrogenase 227 Total Protein 6.3 L Albumin 2.0 L Ur Random Creatinine 64.79 U Random Total Protein Urine Total Volume 2000 Ur Creatinine 24 Hour 1.30 Ur Total Protein 24 Hr 07/16/21 10:20 WBC RBC Hgb Hct MCV MCH MCHC RDW Plt Count MPV Sodium Potassium Chloride Carbon Dioxide Anion Gap BUN Creatinine Estimated GFR/1.73 m2 Glucose Calcium Total Bilirubin AST ALT Alkaline Phosphatase Lactate Dehydrogenase Total Protein Albumin Ur Random Creatinine U Random Total Protein 51.3 H Urine Total Volume 2000 Ur Creatinine 24 Hour Ur Total Protein 24 Hr 1026.0 H Objective Narrative Objective Narrative: Both ends of the capsule were identified and brought together with 3 interrupted figure of eight sutures of 3-0 vicryl. The remaining perineum was repaired with 3-0 vicryl in a running subcuticular fashion. Fundus was firm with good hemostasis.
--- NOTE | 2021-07-17 07:44 | OBVDS_ITS ---
Date of service: 07/17/21 Time of Service: 01:30 OB Labor/ Delivery Information Baby A Delivery Delivery Method: Spontaneaous Presentation: Cephalic Cephalic Position: Vertex Vertex Position: Right Occipital Anterior Breech Position: N/A Cord Description-Baby A: 3 Vessels Amniotic Fluid: Clear Estimated Blood Loss: 450 ml Delivery Outcome: Liveborn Infant Transferred: Remains with Mother Providers Nurse Canal Lock Tender Chief Operator: Christy Gagnon Nurse: Adelaide Moser Nurse: Christoph Moreira Labor/Delivery Information Number of Babies in Womb: 1 Steroids Given: None Reason Steroids Not Administered: N/A Group Beta Strep: Negative Antibiotics Administered: No Rubella Status: Immune Blood Type: B- Varicella Immunity: Immune Maternal Complications: Other Shoulder Dystocia: No Note: Pt rested well with epidural anesthesia, AROM performed @ 5-6 cm dilation, subsequent progress to full dilation with rotation and descent. First 45 minutes of 2nd stage after huddle completed pt rested in lateral positioning for passive descent to +2 at which time active pushing efforts began. Category 1 tracing throughout per NOVI. Second 2nd stage huddle completed at the 1 hr ann-marie, at which point increased risk for PPH d/t pre-eclampsia was discussed and prepared for, bladder scan showed >150 ml urine in bladder likely so straight cath performed for 200 ml concentrated yellow urine returned. Continued excellent explusive efforts by the pt resulted in of a vigorous female , shoulders came easily, infant to mother's arms immediately. pitocin infusion started, cord ceased pulsating, clamped and then cut by pt's father, cord blood collected, [place] placenta delivered intact with 3VC. Bleeding noted from vaginal laceration so repair commenced quickly and bleeding controlled as vaginal floor repair progressed though under difficult visuali zation. Once bleeding from vaginal floor ceased, laceration to the rectal sphincter was identified and Dr. Graf was called to complete repair. Pt had excellent anesthesia through delivery and repair, excellent bonding with baby was observed. Fundus firm, lochia rubra appropriate, BP remains mild range. Pt requests to take her placenta home, placed in container, appropriately labeled and stored. Apgars 9/9, weight 2710 gms. Stages of Labor Onset of Labor Date: 07/16/21 Onset of Labor Time: 10:00 Complete Dilatation Date: 05/07/22 Complete Dilatation Time: 22:00 Labor - Stage 1 Duration: 0 minutes ROM Baby A: 07/16/21 ROM Baby A: 19:45 ROM Total Time- Baby A: [id number] Infant Delivery Date-Baby A: 07/16/21 Delivery Time-Baby A: 23:59 Labor Stage 2 Duration: 1 hours and 59 minutes Placenta Delivery Date-Baby A: 07/17/21 Placenta Delivery Time-Baby A: 00:06 Labor-Stage 3 Duration: 7 minutes Total Length of Labor-Baby A: 13 hours and 59 minutes Placenta Cultured: No Placenta Status: Delivered Baby A Gender: Female Gestational Status: Early Term (37-38.6 wks) Gestational Age in Weeks/Days: 38 Weeks and 4 Days weight: 5 lb 15.592 oz Weight Comment: 2710 gms Length-Baby A: 18.9 in Head Circumference-Baby A: 12.99 in Score-1 Minute Interval(Baby A) Heart Rate-1 minute: 100 BPM or Greater Respiratory Effort- 1 minute: Spontaneous/Strong Cry Muscle Tone-1 minute: Active Movement Reflex Response-1 minute: Prompt Response Color-1 minute: Bluish Hands or Feet Total Score-1 minute: 9 Score-5 Minute Interval(Baby A) Heart Rate- 5 minute: 100 BPM or Greater Respiratory Effort-5 minute: Spontaneous/Strong Cry Muscle Tone-5 minute: Active Movement Reflex Response-5 minute: Prompt Response Color-5 minute: Bluish Hands or Feet Total Score- 5 minute: 9 Procedure Procedures: Cord Blood Collection Interventions Repair of Laceration Type: Perineal and Other (vaginal floor), Laceration Extension: Third Degree (partial). Sponge Count Correct: Vaginal Sweep Peformed, Sharp Count Correct: Yes. Laceration Repair Note: Deep vaginal floor laceration bleeding repaired with 3.0 Vicryl under epidural anesthesia by CNM using vaginal sponges and small retractor held by RN for visualization, injury to rectal sphincter with intact rectal mucosa identified at which time repair paused until the arrival of Dr. Wolff who repaired a partial 3rd degree laceration and remaining perineal laceration, see MD note.
[2021-07-17] MEDS: Dibucaine 1% 28 GM TUBE TP (08:16)
[2021-07-17] MEDS: Hamamelis Leaf/Glycerin 100 EACH BOX PR (08:16)
[2021-07-17] MEDS: valACYclovir 500 MG TAB PO (08:18)
[2021-07-17] MEDS: Ibuprofen 600 MG TAB PO ×2 (08:19→21:10)
[2021-07-17] MEDS: FLUoxetine 10 MG TAB PO (08:19)
[2021-07-17] MEDS: Normal Saline Flush 10 ML SYR IVP (18:20)
[2021-07-17] MEDS: Prenatal Multivitamin w/CA,FE TAB 1 TAB PO (21:11)
[2021-07-18 03:00] VITALS: BP 136/84; PULSE 100; RESP 18; TEMP 36.2
[2021-07-18 06:42] LABS: HCT 24.8 % (36.0-46.0); HGB 7.6 g/dL (11.2-15.7); MCH 24.7 pg (27.0-33.0); MCHC 30.6 % (32.0-36.0); MCV 81 fL (80-95); MPV 9.3 fL (8.0-11.0); Platelet Count 413 10^3/uL (130-400); RBC 3.08 10^6/uL (3.93-5.22); RDW-SD 62.6 fL; WBC 12.51 10^3/uL (4.4-10.8)
[2021-07-18 06:59] LABS: ALT 18 U/L (14-59); AST 25 U/L (15-37); Alkaline Phosphatase 128 U/L (46-116); Anion Gap 9.2 mmol/L (3-11); BUN 5 mg/dL (7-18); Bilirubin, Total 0.1 mg/dL (0.2-1.0); CO2 21.8 mmol/L (21.0-32.0); CREATININE 0.4 mg/dL (0.55-1.02); Calcium 8.1 mg/dL (8.5-10.1); Chloride 106 mmol/L (98-107); Glucose 84 mg/dL (74-106); Potassium 4.1 mmol/L (3.5-5.1); Sodium 137 mmol/L (136-145); Total Protein 5.8 g/dL (6.4-8.2)
--- NOTE | 2021-07-18 07:01 | OBPPV_ITS ---
Date of service: 07/18/21 Time of Service: 07:01 Assessment and Plan Assessment and plan (1) Term delivered: Status: Acute Assessment and plan: A: PPD#1, nml recovery Mild range pressures and decreasing Diuresing well off to a good start Satisfied with experience P: Repeat HTN labs this morning RhoGam injection today Consider iron infusion if hgb <9 Expecting discharge to home tomorrow Pt states she plans tubal ligation at 2 months Subjective Subjective Patient comments: Pain well controlled, Tolerating diet and Bowel Movement Patient's Mood: happy [place] baby status: Doing well, Nursing well, Rooming in and Strong Bonding Observed feeding status: Exclusively breast feeding Exam Physical Exam Vital signs: Temp Pulse Resp BP Pulse Ox 97.2 F L 100 H 18 136/84 96 07/18/21 03:00 07/18/21 03:00 07/18/21 03:00 07/18/21 03:00 07/17/21 08:05 Vital Signs Reviewed: Yes Constitutional Constitutional: no acute distress HEENT Exam HEENT Exam: Normal Neck Exam Neck Exam: Normal Breast Exam Bilateral: Breast Exam: Normal and Soft Nipple Exam: Normal and Uninjured Respiratory Exam Respiratory Exam: Normal Cardiovascular Exam Cardiovascular Exam: Normal Abdominal Exam Abdomen: Other (soft, nontender) Fundal Exam Fundus: Below Umbilicus and Firm Rectal Exam Rectal Exam: Not Done Exam Perineum: Repair Intact Extremities Exam Extremity Exam: Normal, Full ROM and Warm to Touch Back/Spine/Pelvis Exam Back Exam: Normal Skin Exam Skin Exam: Normal Neurological Exam Neurological Exam: Normal Psychiatric Exam Psychiatric Exam: Normal
[2021-07-18 07:30] VITALS: BP 134/92; PULSE 89; RESP 16; TEMP 36.4; O2SAT 97
[2021-07-18] MEDS: Ibuprofen 600 MG TAB PO (07:47)
[2021-07-18] MEDS: FLUoxetine 10 MG TAB PO (07:47)
[2021-07-18] MEDS: Acetaminophen 500 MG TAB 1000 MG PO (07:47)
[2021-07-18] MEDS: Normal Saline Flush 10 ML SYR IVP (09:21)
[2021-07-18 11:14] VITALS: BP 127/88; PULSE 92; RESP 16; TEMP 36.8
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
--- NOTE | 2021-07-18 13:37 | W.ANESPOSTOP ---
Postoperative Evaluation Date, Time and Location Date Performed: 07/18/21 Time Performed: 12:02 Patient Location: Obstetrics Vital Signs Most Recent Imported Vital Signs: Most Recent Vital Signs Temp Pulse Resp BP Pulse Ox 36.8 C 92 H 16 127/88 97 07/18/21 11:14 07/18/21 11:14 07/18/21 11:14 07/18/21 11:14 07/18/21 07:30 Pain Score Most Recent Pain Score: Most Recent Pain Score Pain Level [Genital Soft 1 07/18/21 11:14 Tissue] Pain Level 3 07/17/21 21:10 Assessment Mental Status: Awake (Alert & Oriented to Patient Baseline) Airway and Respiratory Function: Patent airway with normal (patient baseline) respiratory exam Cardiovascular Function: Hemodynamically Stable Hydration Status: Adequately Hydrated Nausea & Vomiting: No Nausea or Vomiting Pain: Pain is tolerable per patient Peripheral Nerve Block: Patient did not receive a nerve block
== END 2021-07-18 14:45 | disposition home or self-care (01) | DRG 768 ==
PROVIDERS: Admitting Provider Advanced Practice Midwife; Visit Provider Advanced Practice Midwife
DX: O14.04 Mild to moderate pre-eclampsia, complicating childbirth (principal); Z37.0 Single live birth; O36.0930 Maternal care for other rhesus isoimmunization, third trimester, not applicable or unspecified; O98.32 Other infections with a predominantly sexual mode of transmission complicating childbirth; O99.354 Diseases of the nervous system complicating childbirth; O71.4 Obstetric high vaginal laceration alone; O99.02 Anemia complicating childbirth; A60.00 Herpesviral infection of urogenital system, unspecified; O99.344 Other mental disorders complicating childbirth; Z3A.38 38 weeks gestation of pregnancy; F31.9 Bipolar disorder, unspecified; O70.20 Third degree perineal laceration during delivery, unspecified; D50.9 Iron deficiency anemia, unspecified
CPT/HCPCS: 36415; 76816; 80053; 85027; 85461; 86850; 86900; 86901; 87635; 90384; 81003; 81015; 82565; 82570; 83615; 84155; 84156; 84550; G0378; J1756; J2790

== ENCOUNTER 2021-08-04 02:48 | Outpatient (RCR) | payer MEDICAID, SELFPAY ==
[2021-07-20] MEDS: IRON SUCROSE COMPLEX 200 MG in Normal Saline 100 ML IVPB (13:27)
[2021-07-20] MEDS: Normal Saline Flush 10 ML SYR IVP (13:28)
[2021-07-28 13:57] LABS: HGB 10.3 g/dL (11.2-15.7)
[2021-07-28] MEDS: Normal Saline Flush 10 ML SYR IVP (14:22)
[2021-07-28] MEDS: IRON SUCROSE COMPLEX 200 MG in Normal Saline 100 ML 440 MG IVPB (14:22)
[2021-08-04] MEDS: Normal Saline Flush 10 ML SYR IVP (13:16)
[2021-08-04] MEDS: IRON SUCROSE COMPLEX 200 MG in Normal Saline 100 ML 440 MG IVPB (13:16)
== END 2021-08-09 23:59 | disposition home or self-care (01) ==
LOC: INF 02:48
PROVIDERS: Visit Provider Advanced Practice Midwife
DX: D50.9 Iron deficiency anemia, unspecified (principal)
CPT/HCPCS: 36415; 96365; 85018; J1756

== ENCOUNTER 2021-08-11 02:03 | Outpatient (RCR) | payer MEDICAID, SELFPAY ==
[2021-08-11 13:19] LABS: HGB 11.9 g/dL (11.2-15.7)
== END 2021-09-08 23:59 | disposition home or self-care (01) ==
LOC: INF 02:03
PROVIDERS: Visit Provider Advanced Practice Midwife
DX: D50.9 Iron deficiency anemia, unspecified (principal)
CPT/HCPCS: 36415; 85018

== ENCOUNTER → 2021-08-29 01:41 | Outpatient (CLI) | payer MEDICAID, SELFPAY ==
--- NOTE | 2021-08-29 06:30 | DI.US_ITS ---
Exam(s) US PELVIS TRANSVAGINAL EXAM: US PELVIS TRANSVAGINAL CLINICAL HISTORY: 6 weeks post , heavy bleeding, O72.1. TECHNIQUE: Transabdominal and transvaginal pelvic ultrasound was performed using standard protocol. COMPARISON: US US OB AMY WEIGHT from 07/15/2021 FINDINGS: KIDNEYS: Kidneys are symmetric in size. No evidence of renal calculi. No evidence of hydronephrosis. No renal mass or cyst identified. UTERUS: Position: Anteverted. Size: 7 long by 3.4 AP by 7.1 transverse cm Endometrium: 0.4 cm. Normal for patient's menstrual status. There is some fluid seen within the endom etrial canal. No soft tissue or abnormal vascularity is identified. Myometrium: Unremarkable. Cervix: Unremarkable. OVARIES: Right: 3.2 x 1.5 x 2.2 cm Cyst or mass: No suspicious cystic or solid masses. Left: 2.1 x 1.7 x 1.1 cm Cyst or mass: No suspicious cystic or solid masses. DOPPLER: Color: Symmetric and uniform flow to both ovaries. CUL-DE-SAC: Free fluid: None. Other: None. IMPRESSION: 1. Normal sonographic appearance of the kidneys. 2. There is some fluid seen within the endometrial canal. But no soft tissue or abnormal vascularity is identified at this time. 3. Unremarkable bilateral ovaries. DATA REPOSITORY:
== END ==
PROVIDERS: Visit Provider Advanced Practice Midwife
DX: O72.1 Other immediate postpartum hemorrhage (principal)
CPT/HCPCS: 76830; 76856

== ENCOUNTER 2022-02-11 08:58 | Outpatient (CLI) | payer MEDICAID, SELFPAY | END 2022-02-11 08:59 | disposition home or self-care (01) | LOC: BCD 09:08 | PROVIDERS: Visit Provider Advanced Practice Midwife ==

== ENCOUNTER 2022-02-11 11:02 | Emergency (ER) | payer MEDICAID, SELFPAY ==
[2022-02-11 11:05] VITALS: BP 113/70; PULSE 110; RESP 16; TEMP 36.7; O2SAT 97
[2022-02-11] MEDS: LORazepam 0.5 MG TAB PO (11:38)
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
== END 2022-02-11 11:38 | disposition home or self-care (01) ==
PROVIDERS: Emergency Provider Physician Assistant
DX: Z71.1 Person with feared health complaint in whom no diagnosis is made (principal); F41.9 Anxiety disorder, unspecified
CPT/HCPCS: 99283

== ENCOUNTER 2022-03-02 14:44 | Emergency (ER) | payer MEDICAID, SELFPAY ==
[2022-03-02 14:51] VITALS: BP 110/72; PULSE 80; RESP 16; TEMP 37.1; O2SAT 96
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
[2022-03-02] MEDS: Erythromycin Ophth Oint 3.5 GM TUBE OS (16:44)
[2022-03-02] MEDS: predniSONE 20 MG TAB 60 MG PO (16:45)
[2022-03-02] MEDS: valACYclovir 1,000 MG TAB 1000 MG PO (16:45)
[2022-03-07 11:17] LABS: Lyme Ab w Rflx to Lyme Confirm Negative (Negative)
[2022-03-07 18:10] LABS: Anaplasma phagocytophilum Negative (Negative); B. miyamotoi PCR Negative (Negative); Babesia divergens/MO-1 Negative (Negative); Babesia duncani Negative (Negative); Babesia microti Negative (Negative); Ehrlichia chaffeensis Negative (Negative); Ehrlichia ewingii/canis Negative (Negative); Ehrlichia muris eauclairensis Negative (Negative)
== END 2022-03-02 16:45 | disposition home or self-care (01) ==
PROVIDERS: Emergency Provider Nurse Practitioner Family; PCP Nurse Practitioner Family
DX: G51.0 Bell's palsy (principal)
CPT/HCPCS: 81025; 87798; 99283; 86618; 99284; J7512

== ENCOUNTER 2022-06-22 16:39 | Emergency (ER) | payer BC, MEDICAID, SELFPAY ==
[2022-06-22 16:54] VITALS: BP 112/47; PULSE 117; RESP 16; TEMP 37.5; O2SAT 95
[2022-06-22 18:08] LABS: Bilirubin Negative (Negative); Blood Negative (Negative); Clarity Clear (Clear); Glucose Negative (Negative); Ketones Negative (Negative); Leukocyte Esterase Trace (Negative); Nitrite Negative (Negative); Urobilinogen 0.2 mg/dL (Up to 0.2)
[2022-06-22 18:21] LABS: Abs Immature Grans 0.02 10^3/uL (0.0-0.06); Absolute Basophil Count 0.04 10^3/uL (0.0-0.2); Absolute Eosinophil Count 0.16 10^3/uL (0.0-0.7); Absolute Lymphocyte Count 2.88 10^3/uL (1.2-3.4); Absolute Monocyte Count 0.83 10^3/uL (0.1-0.8); Absolute Neutrophil Count 4.39 10^3/uL (1.2-6.7); Basophils % 0.5; Eosinophils % 1.9; HCT 36.5 % (36.0-46.0); HGB 12.4 g/dL (11.2-15.7); Immature Grans % 0.2; Lymphocytes % 34.6; MCH 28.6 pg (27.0-33.0); MCV 84 fL (80-95); MPV 8.7 fL (8.0-11.0); Neutrophils % 52.8; Platelet Count 372 10^3/uL (130-400); RBC 4.33 10^6/uL (3.93-5.22); RDW-SD 39.6 fL; WBC 8.32 10^3/uL (4.4-10.8)
[2022-06-22 18:25] LABS: RBC Negative HPF (0-2); WBC 0-2 HPF (0-5)
[2022-06-22 18:26] LABS: Bacteria Few HPF (Negative); C & S Indicated? No/Sq. Contamination; Casts Negative LPF (Negative); Crystals Negative HPF (Negative); Epithelial Cells Many HPF (Negative); Mucus Negative (Negative)
[2022-06-22 18:37] LABS: ALT 28 U/L (14-59); AST 18 U/L (15-37); Albumin 4.1 g/dL (3.4-5.0); Alkaline Phosphatase 83 U/L (46-116); Anion Gap 8.9 mmol/L (3-11); BUN 11 mg/dL (7-18); Bilirubin, Total 0.2 mg/dL (0.2-1.0); CO2 27.1 mmol/L (21.0-32.0); CREATININE 0.7 mg/dL (0.55-1.02); Calcium 9.4 mg/dL (8.5-10.1); Chloride 103 mmol/L (98-107); Estimated GFR 121.49 (mL/min/1.73m2); Glucose 103 mg/dL (74-106); Lipase 77 U/L (16-77); Potassium 3.8 mmol/L (3.5-5.1); Sodium 139 mmol/L (136-145); Total Protein 8.5 g/dL (6.4-8.2)
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
--- NOTE | 2022-06-22 19:30 | DI.CT_ITS ---
Exam(s) CT ABDOMEN PELVIS W EXAM: CT ABDOMEN PELVIS W CLINICAL HISTORY: LLQ/RLQ/LUQ pain, r/o diverticulitis, appendicitis. TECHNIQUE: Imaging Protocol: Axial computed tomography images with coronal and sagittal reformatted images were created and reviewed CONTRAST MATERIAL: Intravenous: Omnipaque 350 Contrast volume:100 ml Oral: yes / no COMPARISON: No exams were available for comparison FINDINGS: ABDOMEN: Lung Bases: Normal where visualized. Liver: Normal density. No measurable mass. Gallbladder and biliary tract: No radiodense calculus or dilation. Pancreas: Normal density, no abnormal calcifications or inflammatory process. Spleen: Normal. Kidneys: Normal size, contour and axis. No radiodense stones or obstructive uropathy. No suspicious m asses seen. Adrenal glands: No masses seen. Abdominal Aorta: Abdominal portion non-dilated. Soft tissues: Unremarkable. PELVIS: Bladder: No gross wall thickening. No calculi.No focal mass. Bowel: No obstruction. No bowel wall thickening. Appendix normal. Peritoneal cavity: No ascites, collection or mesenteric inflammatory response. Bones: Bilateral L5 spondylolysis. No spondylolisthesis. Reproductive organs: Retroverted uterus. Ovarian follicles. No dominant cyst or mass. No findings to indicate torsion. Lymph nodes: Unremarkable. Impression: Unremarkable CT scan of the abdomen and pelvis. RADIATION DOSE DELIVERED: 1,009.39mGy.cm Total DLP DATA REPOSITORY: All CT scans at this facility are submitted to the National Radiology Data Registry (NRDR) Dose Index Registry (DIR) with the [employer] ([employer]). RADIATION OPTIMIZATION: All CT scans at this facility use at least one of these dose optimization te chniques: automated exposure control; mA and/or kV adjustment per patient size (includes targeted exa ms where dose is matched to clinical indication); or iterative reconstruction.
[2022-06-22] MEDS: Normal Saline - Diluent 50 ML VIAL IJ (20:25)
[2022-06-22] MEDS: Omnipaque 350 MG/ML 100 ML BTL IJ (20:26)
[2022-06-22] MEDS: Ketorolac 30 MG/ML VIAL IVP (20:43)
[2022-06-22] MEDS: Prochlorperazine 10 MG/2 ML VIAL IVP (20:43)
[2022-06-22] MEDS: Normal Saline 1,000 ML 1000 ML IV (20:43)
--- NOTE | 2022-06-22 21:04 | DI.VRAD_ITS ---
PROCEDURE INFORMATION: Exam: CT Abdomen And Pelvis With Contrast Exam date and time: 06/22/2022 8:22 PM Age: 26 years old Clinical indication: Other: Llq/rlq/luq pain, R/O diverticulitis, appendicitis TECHNIQUE: Imaging protocol: Computed tomography of the abdomen and pelvis with contrast. Contrast material: OMNIPAQUE; Contrast volume: 100 ml; Contrast route: INTRAVENOUS (IV); COMPARISON: US PELVIS TRANSVAGINAL 08/29/2021 7:15 AM FINDINGS: Liver: Normal. No mass. Gallbladder and bile ducts: Normal. No calcified stones. No ductal dilation. Pancreas: Normal. No ductal dilation. Spleen: Normal. No splenomegaly. Adrenal glands: Normal. No mass. Kidneys and ureters: Normal. No hydronephrosis. Stomach and bowel: Unremarkable. No evidence of bowel wall thickening obstruction. No significant diverticulosis. Appendix: The appendix is visualized on axial images 54 through 58 superomedial to the cecum and appears normal. Intraperitoneal space: There is a small amount of free fluid in the pelvis. No free air. Vasculature: Unremarkable. No abdominal aortic aneurysm. Lymph nodes: Unremarkable. No enlarged lymph nodes. Urinary bladder: Unremarkable as visualized. Reproductive: There are simple appearing bilateral ovarian cysts measuring 2.5 cm in the right and 2.2 cm on the left. These are compatible with a benign physiologic cysts. Uterus appears unremarkable. Bones/joints: Unremarkable. No acute fracture. Soft tissues: Unremarkable. IMPRESSION: Small bilateral ovarian cysts and small amount of free fluid in the pelvis, likely physiologic. Otherwise unremarkable CT abdomen and pelvis. Dictated and Authenticated by: Dante Farmer MD. Ordering:LEONOR De La Torre MD
[2022-06-22 21:25] VITALS: PULSE 75; RESP 18; O2SAT 98
--- NOTE | 2022-06-22 21:33 | NUR.NOTE ---
Pelvic ultrasound req faxed to [facility], instruction work sheet given to patient, f/u referral faxed to [facility] for week of 06/26. Ovarian cyst.Nursing Note:
== END 2022-06-22 21:26 | disposition home or self-care (01) ==
PROVIDERS: Physician Assistant; Emergency Provider Emergency Medicine; PCP Nurse Practitioner Family
DX: N83.201 Unspecified ovarian cyst, right side (principal); N83.202 Unspecified ovarian cyst, left side; R00.0 Tachycardia, unspecified
CPT/HCPCS: 36415; 80053; 81025; 83690; 96361; 96374; 96375; 99285; 74177; 81003; 81015; 85025; 99284; J0780; J1885; J3490

== ENCOUNTER 2022-06-23 10:16 | Outpatient (CLI) | payer BC, MEDICAID, SELFPAY ==
--- NOTE | 2022-06-23 | DI.US_ITS ---
Exam(s) US PELVIS TRANSVAGINAL EXAM: US PELVIS TRANSVAGINAL CLINICAL HISTORY: PAIN, OVARIAN CYST ON CT TECHNIQUE: Transabdominal and transvaginal imaging was performed using standard protocol. COMPARISON: No exams were available for comparison FINDINGS: UTERUS: Retroflexed. 7.3 x 3.5 by 6.1 cm Endometrium: 16 mm Myometrium: Unremarkable. Cervix: Unremarkable. OVARIES: Right: Cyst or mass: 2.7 centimeter dominant follicle. Left: Cyst or mass: None. Trace amount of adjacent fluid. DOPPLER: Color: Symmetric and uniform flow to both ovaries. No hyperemia. CUL-DE-SAC: Free fluid: None. IMPRESSION: 1. Normal-appearing uterus with endometrial stripe within normal limits. 2. Unremarkable bilateral ovaries. Trace amount of fluid adjacent to the left ovary. DATA REPOSITORY:
== END 2022-06-23 10:36 ==
PROVIDERS: PCP Nurse Practitioner Family; Visit Provider Emergency Medicine
DX: N83.291 Other ovarian cyst, right side (principal); R10.31 Right lower quadrant pain
CPT/HCPCS: 76830; 76856

== ENCOUNTER 2022-06-28 03:07 | Outpatient (CLI) | payer BC, MEDICAID, SELFPAY ==
[2022-06-28 13:25] LABS: Abs Immature Grans 0.01 10^3/uL (0.0-0.06); Absolute Basophil Count 0.07 10^3/uL (0.0-0.2); Absolute Eosinophil Count 0.21 10^3/uL (0.0-0.7); Absolute Monocyte Count 0.74 10^3/uL (0.1-0.8); Absolute Neutrophil Count 3.88 10^3/uL (1.2-6.7); HCT 36.9 % (36.0-46.0); HGB 12.6 g/dL (11.2-15.7); Immature Grans % 0.1; Lymphocytes % 30.9; MCH 28.5 pg (27.0-33.0); MCHC 34.1 % (32.0-36.0); MCV 84 fL (80-95); MPV 8.7 fL (8.0-11.0); Monocytes % 10.4; Neutrophils % 54.6; Platelet Count 397 10^3/uL (130-400); RBC 4.42 10^6/uL (3.93-5.22); RDW 12.8 % (11.7-14.6); RDW-SD 39.2 fL; WBC 7.11 10^3/uL (4.4-10.8)
[2022-06-28 13:53] LABS: ALT 31 U/L (14-59); AST 22 U/L (15-37); Alkaline Phosphatase 79 U/L (46-116); Anion Gap 10.2 mmol/L (3-11); BUN 12 mg/dL (7-18); Bilirubin, Total 0.2 mg/dL (0.2-1.0); CO2 23.8 mmol/L (21.0-32.0); CREATININE 0.7 mg/dL (0.55-1.02); Calcium 9.4 mg/dL (8.5-10.1); Calculated LDL 84 mg/dL (<100); Chloride 103 mmol/L (98-107); Cholesterol 175 mg/dL (<200); Estimated GFR 121.49 (mL/min/1.73m2); Glucose 98 mg/dL (74-106); HDL Cholesterol 68 mg/dL (40-60); Potassium 3.7 mmol/L (3.5-5.1); Sodium 137 mmol/L (136-145); TSH 3.03 uIU/mL (0.36-3.74); Total Protein 8.5 g/dL (6.4-8.2); Triglyceride 117 mg/dL (<150)
[2022-06-28 13:56] LABS: HCG Quant, Pregnancy < 1 mIU/mL (1-3)
[2022-06-28 15:28] LABS: Vitamin D 25 Total 19.9 ng/mL (30-100)
== END 2022-06-28 03:08 | disposition home or self-care (01) ==
LOC: LBO 03:07
PROVIDERS: PCP Nurse Practitioner Family; Visit Provider Naturopath
DX: R10.2 Pelvic and perineal pain (principal)
CPT/HCPCS: 36415; 80053; 80061; 82306; 84443; 84702; 85025

== ENCOUNTER → 2022-12-14 13:00 | Outpatient (CLI) | payer MEDICAID, SELFPAY ==
--- NOTE | 2022-12-14 14:21 | DI.RAD_ITS ---
Exam(s) XR LUMBAR SPINE AP, LAT EXAM: XR LUMBAR SPINE AP, LAT CLINICAL HISTORY: LOW BACK AND HIP PAIN. TECHNIQUE: 2D digital imaging was performed. COMPARISON: No exams were available for comparison FINDINGS: 3 views No evidence of fracture. Subtle suggestion of pars defects at L5 level and there is mild degenerativ e anterolisthesis of L5 upon S1 without disc space narrowing at this level. Other disc spaces also e xhibit normal height. There is no scoliosis. Facet joints unremarkable. Sacroiliac joints unremark able. 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 If clinically indicated flexion and extension lateral views can be performed to determine the true am ount of anterior slippage of L5 upon S1 during everyday activities. DATA REPOSITORY: RADIATION DOSE DELIVERED:
== END ==
PROVIDERS: PCP Nurse Practitioner Family; Visit Provider Naturopath
DX: M54.50 Low back pain, unspecified (principal)
CPT/HCPCS: 72100

== ENCOUNTER 2023-08-08 05:06 | Outpatient (CLI) | payer OTHER, SELFPAY ==
[2023-08-08 14:15] LABS: Abs Immature Grans 0.01 10^3/uL (0.0-0.06); Absolute Basophil Count 0.06 10^3/uL (0.0-0.2); Absolute Eosinophil Count 0.15 10^3/uL (0.0-0.7); Absolute Lymphocyte Count 2.21 10^3/uL (1.2-3.4); Absolute Monocyte Count 0.63 10^3/uL (0.1-0.8); Absolute Neutrophil Count 3.12 10^3/uL (1.2-6.7); Eosinophils % 2.4 %; HCT 35.8 % (36.0-46.0); HGB 11.4 g/dL (11.2-15.7); Immature Grans % 0.2 %; Lymphocytes % 35.8 %; MCH 26.3 pg (27.0-33.0); MCHC 31.8 % (32.0-36.0); MCV 83 fL (80-95); MPV 8.5 fL (8.0-11.0); Monocytes % 10.2 %; Neutrophils % 50.4 %; Platelet Count 374 10^3/uL (130-400); RBC 4.34 10^6/uL (3.93-5.22); RDW 13.2 % (11.7-14.6); RDW-SD 39.5 fL; WBC 6.18 10^3/uL (4.4-10.8)
[2023-08-08 14:35] LABS: Hemoglobin A1C 5.9 % (<5.7)
[2023-08-08 15:58] LABS: ALT 23 U/L (14-59); AST 19 U/L (15-37); Albumin 3.7 g/dL (3.4-5.0); Alkaline Phosphatase 85 U/L (46-116); Anion Gap 10.8 mmol/L (3-11); BUN 9 mg/dL (7-18); Bilirubin, Total 0.2 mg/dL (0.2-1.0); CO2 25.2 mmol/L (21.0-32.0); CREATININE 0.8 mg/dL (0.55-1.02); Calcium 8.8 mg/dL (8.5-10.1); Chloride 104 mmol/L (98-107); Estimated GFR 102.86 (mL/min/1.73m2); FREE T4 1.19 ng/dL (0.76-1.46); Glucose 100 mg/dL (74-106); Potassium 3.7 mmol/L (3.5-5.1); Sodium 140 mmol/L (136-145); TSH 2.48 uIU/Ml (0.36-3.74); Total Protein 8.1 g/dL (6.4-8.2)
[2023-08-08 16:16] LABS: Calculated LDL 93 mg/dL (<100); Cholesterol 174 mg/dL (<200); HDL Cholesterol 71 mg/dL (40-60); Triglyceride 53 mg/dL (<150)
== END 2023-08-08 05:07 | disposition home or self-care (01) ==
PROVIDERS: Visit Provider Naturopath
DX: Z00.00 Encounter for general adult medical examination without abnormal findings (principal)
CPT/HCPCS: 36415; 80053; 80061; 82306; 83036; 84439; 84443; 85025

== ENCOUNTER 2024-05-06 11:01 | Outpatient (CLI) | payer BC, SELFPAY ==
[2024-05-06 11:23] LABS: ESR 25 mm/hr (0-20)
[2024-05-06 17:13] LABS: Rheumatoid Factor <8.6 IU/mL (<12.0)
[2024-05-06 17:14] LABS: Hemoglobin A1C 5.9 % (<5.7)
[2024-05-07 14:40] LABS: ANA Interpretation Negative (Negative)
== END 2024-05-06 11:02 | disposition home or self-care (01) ==
LOC: LBO 11:01
PROVIDERS: Visit Provider Naturopath
DX: R73.03 Prediabetes (principal)
CPT/HCPCS: 36415; 85652; 83036; 86038; 86431